=== PATIENT | female | born 1985 | race Caucasian/White ===

== ENCOUNTER 2017-01-06 23:40 | Outpatient (CLI) | payer BC ==
[~2017-01-06] VITALS: Ht 170.2 cm; Wt 85.0 kg
== END 2017-01-07 01:35 | disposition home or self-care (01) ==
LOC: LDOP 23:40
PROVIDERS: ATTEND Obstetrics & Gynecology
DX: O62.9 Abnormality of forces of labor, unspecified (principal); O48.0 Post-term pregnancy; Z3A.40 40 weeks gestation of pregnancy
CPT/HCPCS: 59025; 99201; G0463

== ENCOUNTER 2017-01-08 21:43 | Inpatient (IN) | payer BC ==
[~2017-01-08] VITALS: Ht 167.6 cm; Wt 82.0 kg
[2017-01-08 22:21] VITALS: BP 120/70
[2017-01-08] MEDS ORDERED: OXYTOCIN 30U/ 0.9% NaCL 500ML 500 ML IV ONE (23:20)
[2017-01-08] MEDS ORDERED: LACTATED RINGERS 1,000 ML IV SCH (23:20)
[2017-01-08] MEDS ORDERED: SODIUM CHLORIDE FLUSH 10ML SYR IVF PRN (23:30)
[2017-01-08] MEDS ORDERED: FENTANYL PF 100 MCG/2ML IVPush PRN (23:30)
[2017-01-08] MEDS ORDERED: FENTANYL PF 100 MCG/2ML IV PRN (23:30)
[2017-01-08] MEDS ORDERED: ONDANSETRON 2MG/ML, 2ML IVPush PRN (23:30)
[2017-01-08] MEDS ORDERED: LIDOCAINE 1%, 20ML ONE (23:30)
[2017-01-08] MEDS ORDERED: MISOPROSTOL 200 MCG TABLET ONE (23:31)
[2017-01-08] MEDS ORDERED: NEWBORN KIT ONE (23:32)
[2017-01-08] MEDS ORDERED: OXYTOCIN 30U/ 0.9% NaCL 500ML 500 ML ONE (23:35)
[2017-01-09] MEDS ORDERED: FENTANYL PF 100 MCG/2ML ONE ×2 (03:00→03:28)
[2017-01-09] MEDS ORDERED: BUPIVACAINE/PF 0.25% ONE (03:22)
[2017-01-09] MEDS ORDERED: FENTANYL/BUPIV./NS/PF 250 ML EPIDCONT ONE ×2 (03:22→03:25)
[2017-01-09] MEDS ORDERED: LACTATED RINGERS 1,000 ML IV SCH (03:24)
[2017-01-09] MEDS ORDERED: FENTANYL/BUPIV./NS/PF 250 ML EPIDCONT SCH (03:24)
[2017-01-09] MEDS ORDERED: LACTATED RINGERS 1,000 ML IVBOLUS PRN (03:30)
[2017-01-09] MEDS ORDERED: EPHEDRINE 50 MG/ML, 1ML IVPush PRN (03:30)
[2017-01-09] MEDS ORDERED: NALOXONE 0.4 MG/ML, 1ML IVPush PRN (03:30)
[2017-01-09] MEDS ORDERED: METHYLERGONOVINE 0.2 MG/ML IM ONE (04:28)
[2017-01-09] MEDS: OXYTOCIN 30U/ 0.9% NaCL 500ML 500 ML IV SCH ×4 (04:52→18:54)
[2017-01-09] MEDS ORDERED: ACETAMINOPHEN 325 MG TABLET PO PRN (05:00)
[2017-01-09] MEDS ORDERED: CARBOPROST TROMETHAMINE 250 MCG/ML, 1ML IM PRN (05:00)
[2017-01-09] MEDS ORDERED: ONDANSETRON 2MG/ML, 2ML IV PRN (05:00)
[2017-01-09] MEDS ORDERED: MISOPROSTOL 200 MCG TABLET PO PRN (05:00)
[2017-01-09] MEDS ORDERED: OXYTOCIN 10 UNITS/ML, 1ML IM PRN (05:00)
[2017-01-09] MEDS ORDERED: HYDROcodone/APAP 5/325 TABLET PO PRN (05:00)
[2017-01-09] MEDS ORDERED: METHYLERGONOVINE 0.2 MG/ML IM PRN ×2 (05:00)
[2017-01-09] MEDS ORDERED: MISOPROSTOL 200 MCG TABLET PR PRN (05:00)
[2017-01-09] MEDS ORDERED: HYDROcodone/APAP 5/325 TABLET ONE (07:16)
[2017-01-09] MEDS ORDERED: IBUPROFEN 600 MG TABLET ONE (07:17)
[2017-01-09] MEDS: IBUPROFEN 600 MG TABLET PO PRN ×3 (07:18→22:58)
[2017-01-09 07:30] VITALS: BP 117/68
[2017-01-09] MEDS: PRENATAL VIT/IRON/FA 1 EACH TABLET PO SCH ×2 (09:00)
[2017-01-09] MEDS: SERTRALINE 50MG TABLET PO SCH (09:00)
[2017-01-09] MEDS: THYROID 30 MG TABLET PO SCH (09:00)
[2017-01-09] MEDS: HYDROcodone/APAP 5/325 TABLET PO PRN ×3 (11:43→20:38)
[2017-01-09 12:15] VITALS: BP 107/72
[2017-01-09 17:11] VITALS: BP 121/77
[2017-01-09] MEDS: DOCUSATE 100 MG CAPSULE PO PRN (20:38)
[2017-01-09 20:50] VITALS: BP 109/63
[2017-01-10 00:40] VITALS: BP 96/59
[2017-01-10] MEDS: HYDROcodone/APAP 5/325 TABLET PO PRN ×4 (00:47→13:03)
[2017-01-10] MEDS: OXYTOCIN 30U/ 0.9% NaCL 500ML 500 ML IV SCH ×2 (00:52→04:54)
[2017-01-10] MEDS ORDERED: IBUP-1222 PO (03:22)
[2017-01-10] MEDS ORDERED: DOCU-30 PO (03:23)
[2017-01-10 04:10] VITALS: BP 115/77
[2017-01-10] MEDS: IBUPROFEN 600 MG TABLET PO PRN ×2 (04:51→11:50)
[2017-01-10 08:30] VITALS: BP 106/64
[2017-01-10] MEDS: DOCUSATE 100 MG CAPSULE PO PRN (08:41)
[2017-01-10] MEDS: THYROID 30 MG TABLET PO SCH (09:00)
[2017-01-10] MEDS: PRENATAL VIT/IRON/FA 1 EACH TABLET PO SCH ×2 (09:00)
[2017-01-10] MEDS: SERTRALINE 50MG TABLET PO SCH (09:00)
[2017-01-10] MEDS ORDERED: HYDR-3240 PO (09:47)
== END 2017-01-10 14:33 | disposition home or self-care (01) | DRG 774 ==
LOC: LDOP 21:43 → LDIP 23:25 → 2NW 01-09 07:40
PROVIDERS: ADMIT Obstetrics & Gynecology; ATTEND Obstetrics & Gynecology
PROC: 10E0XZZ Delivery of Products of Conception, External Approach (ICD-10-PCS; principal; 2017-01-09)
PROC: 10907ZC Drainage of Amniotic Fluid, Therapeutic from Products of Conception, Via Natural or Artificial Opening (ICD-10-PCS; 2017-01-09)
PROC: 0HQ9XZZ Repair Perineum Skin, External Approach (ICD-10-PCS; 2017-01-09)
DX: O99.354 Diseases of the nervous system complicating childbirth (principal); O72.1 Other immediate postpartum hemorrhage; O99.344 Other mental disorders complicating childbirth; O99.284 Endocrine, nutritional and metabolic diseases complicating childbirth; O69.81X0 Labor and delivery complicated by cord around neck, without compression, not applicable or unspecified; F32.9 Major depressive disorder, single episode, unspecified; E06.3 Autoimmune thyroiditis; G43.909 Migraine, unspecified, not intractable, without status migrainosus; O70.0 First degree perineal laceration during delivery; Z88.1 Allergy status to other antibiotic agents; Z79.899 Other long term (current) drug therapy; Z3A.40 40 weeks gestation of pregnancy; Z37.0 Single live birth
CPT/HCPCS: 36415; 85025; 86850; 86870; 86900; 86922; 86923; J3010; J2210; J2590; J7120

== ENCOUNTER 2018-03-03 17:27 | Emergency (ER) | payer BC ==
[~2018-03-03] VITALS: Ht 170.2 cm; Wt 165.0 kg
[~2018-03-03 17:27] MED LIST: DOCU-131 PO; HYDR-3240 PO; IBUP-1222 PO
[2018-03-03] MEDS ORDERED: MORPHINE SULFATE 4 MG/ML, 1ML ONE ×2 (18:54→19:44)
[2018-03-03] MEDS ORDERED: ONDANSETRON 2MG/ML, 2ML ONE (18:54)
[2018-03-03] MEDS: MORPHINE SULFATE 4 MG/ML, 1ML IVPush PRN ×2 (18:58→19:45)
[2018-03-03] MEDS ORDERED: ONDANSETRON 2MG/ML, 2ML IVPush ONE (19:00)
[2018-03-03 19:01] LABS: BASOPHILS # (AUTO) 0.03 x10^3/uL (0-0.1); BASOPHILS % (AUTO) 1 % (0-1); EOSINOPHILS # (AUTO) 0.05 x10^3/uL (0-0.4); EOSINOPHILS % (AUTO) 1 % (1-7); LYMPHOCYTES # (AUTO) 2.45 x10^3/uL (1-3.4); LYMPHOCYTES % (AUTO) 35 % (22-44); MD NO; MEAN CORPUSCULAR HEMOGLOBIN 31.9 pg (27.0-34.8); MEAN CORPUSCULAR HGB CONC 33.8 g/dL (32.4-35.8); MEAN CORPUSCULAR VOLUME 94.3 fL (80-100); MEAN PLATELET VOLUME 8.2 fL (7.4-10.4); MICROSCOPIC NOT IND; MONOCYTES # (AUTO) 0.52 x10^3/uL (0.2-0.8); MONOCYTES % (AUTO) 7 % (2-9); NEUTROPHILS # (AUTO) 3.97 x10^3/uL (1.8-6.8); NEUTROPHILS % (AUTO) 57 % (42-75); PLATELET COUNT 250 x10^3/uL (130-400); RED BLOOD COUNT 4.71 x10^6/uL (3.82-5.3); RED CELL DISTRIBUTION WIDTH 12.9 % (9.6-15.2)
[2018-03-03 19:05] LABS: CULTURE INDICATED? NO
[2018-03-03 19:13] LABS: ALANINE AMINOTRANSFERASE 22 U/L (12-78); ALBUMIN 4.1 g/dL (3.4-5.0); ANION GAP 6 mmol/L (5-15); CALCIUM 8.8 mg/dL (8.5-10.1); CHLORIDE 106 mmol/L (98-107); CREATININE 0.67 mg/dL (0.55-1.02)
[2018-03-03 19:15] LABS: INTERNATIONAL NORMALIZED RATIO 0.98 (0.93-1.1); PROTHROMBIN TIME 10.2 Seconds (9.6-11.5)
[2018-03-03 19:18] LABS: ALKALINE PHOSPHATASE 93 U/L (45-117); BILIRUBIN,TOTAL 0.3 mg/dL (0.2-1.0); TOTAL PROTEIN 7.5 g/dL (6.4-8.2)
[2018-03-03] MEDS ORDERED: OMNIPAQUE 350 MG/ML, 100ML BOTTLE ONE (20:07)
[2018-03-03 20:21] VITALS: BP 113/76
[2018-03-03] MEDS ORDERED: KETOROLAC 30 MG/1 ML ONE (20:22)
[2018-03-03] MEDS ORDERED: KETOROLAC 30 MG/1 ML IVPush ONE (20:30)
== END 2018-03-03 21:03 | disposition home or self-care (01) ==
LOC: ED 20:55
DX: S20.211A Contusion of right front wall of thorax, initial encounter (principal); R10.11 Right upper quadrant pain; W18.30XA Fall on same level, unspecified, initial encounter; Y93.89 Activity, other specified; Y92.410 Unspecified street and highway as the place of occurrence of the external cause; Y99.9 Unspecified external cause status
CPT/HCPCS: 36415; 71046; 74177; 80053; 81003; 83690; 84703; 85025; 85610; 85730; 93005; 96374; 96375; 96376; 99285; J1885; J2405; Q9967

== ENCOUNTER → 2020-11-11 | Outpatient (CLI) | payer BC ==
[~2020-11-11] MED LIST changes: +ACET-1600 PO; +AMIT75TA PO; +CIDE500T PO; +DIPH25CA61 PO; +HYDR-1067 PO; -HYDR-3240 PO; +LEVO300T2 PO; +LEVO5TAB29 PO; +MELA10TA PO; +MULT-449 PO; +RIVA20TA PO; +UBRO50TA PO; +VENL37.58 PO; +fioricet PO; +methyl folate PO; +slow fe PO
[2020-11-11 11:25] LABS: BASOPHILS % (AUTO) 1 % (0-1); EOSINOPHILS % (AUTO) 2 % (1-7); LYMPHOCYTES % (AUTO) 41 % (22-44); MEAN CORPUSCULAR HEMOGLOBIN 31.6 pg (27.0-34.8); MEAN PLATELET VOLUME 7.4 fL (7.4-10.4); MONOCYTES % (AUTO) 7 % (2-9); NEUTROPHILS % (AUTO) 49 % (42-75); PLATELET COUNT 259 x10^3/uL (130-400); RED BLOOD COUNT 4.67 x10^6/uL (3.82-5.3); RED CELL DISTRIBUTION WIDTH 12.3 % (9.6-15.2)
[2020-11-11 11:31] LABS: CHLORIDE 106 mmol/L (98-107)
[2020-11-11 11:32] LABS: MD NO
[2020-11-11 11:50] LABS: ALANINE AMINOTRANSFERASE 33 U/L (12-78); ALBUMIN 3.8 g/dL (3.4-5.0); ALKALINE PHOSPHATASE 91 U/L (45-117); ANION GAP 9 mmol/L (5-15); BILIRUBIN,TOTAL 0.2 mg/dL (0.2-1.0); CALCIUM 9.2 mg/dL (8.5-10.1); CREATININE 0.65 mg/dL (0.55-1.02); TOTAL PROTEIN 7.4 g/dL (6.4-8.2)
[2020-11-11 11:56] LABS: MICROSCOPIC AUTO
== END | disposition home or self-care (01) ==
LOC: STAR 09:46
PROVIDERS: ATTEND Obstetrics & Gynecology
DX: Z01.812 Encounter for preprocedural laboratory examination (principal); R10.2 Pelvic and perineal pain; N94.6 Dysmenorrhea, unspecified; N80.9 Endometriosis, unspecified; N92.0 Excessive and frequent menstruation with regular cycle; Z20.822 Contact with and (suspected) exposure to COVID-19
CPT/HCPCS: 36415; 80053; 81001; 84702; 85025; 87086; U0003

== ENCOUNTER 2020-11-17 10:31 | Day surgery (SDC) | payer BC ==
[~2020-11-17] VITALS: Ht 170.2 cm; Wt 94.5 kg
[2020-11-17] MEDS ORDERED: EPINEPHRINE 1 MG/ML, 1ML ONE (10:51)
[2020-11-17] MEDS ORDERED: BUPIVACAINE/PF 0.5% ONE (10:51)
[2020-11-17] MEDS ORDERED: LIDOCAINE-MPF 1%, 2ML INFIL ONE (11:00)
[2020-11-17] MEDS ORDERED: LACTATED RINGERS 1,000 ML IV SCH (11:00)
[2020-11-17] MEDS ORDERED: ACETAMINOPHEN 500 MG TABLET PO ONE (11:00)
[2020-11-17 11:02] LABS: HCG UR SG 1.009 (1.003-1.030)
[2020-11-17 11:06] VITALS: BP 112/77
[2020-11-17] MEDS ORDERED: FENTANYL PF 250 MCG/5ML ONE ×2 (12:33→13:33)
[2020-11-17] MEDS ORDERED: MIDAZOLAM 1 MG/ML, 2ML ONE (12:33)
[2020-11-17] MEDS ORDERED: DEXAMETHASONE 4 MG/ML, 5ML ONE (12:34)
[2020-11-17] MEDS ORDERED: ONDANSETRON 2MG/ML, 2ML ONE (12:36)
[2020-11-17] MEDS ORDERED: CEFAZOLIN 1,000 MG ONE (12:36)
[2020-11-17] MEDS ORDERED: GLYCOPYRROLATE 0.2MG/1ML, 5ML ONE (14:06)
[2020-11-17] MEDS ORDERED: ROCURONIUM 10MG/ML,5ML ONE (14:06)
[2020-11-17] MEDS ORDERED: NEOSTIGMINE 1 MG/ML, 10ML ONE (14:06)
[2020-11-17] MEDS ORDERED: PROPOFOL 10 MG/ML, 20ML ONE (14:06)
[2020-11-17] MEDS ORDERED: FENTANYL PF 100 MCG/2ML ONE ×2 (14:30→14:41)
[2020-11-17] MEDS: FENTANYL PF 100 MCG/2ML IV PRN ×4 (14:31→14:56)
[2020-11-17] MEDS ORDERED: HYDROmorphone 1 MG/ML, 1ML INJ ONE ×2 (14:33→16:06)
[2020-11-17] MEDS: HYDROmorphone 1 MG/ML, 1ML INJ IVPush PRN ×8 (14:40→16:17)
[2020-11-17] MEDS ORDERED: OXYcodone 5 MG/5 ML ORAL.SOL UDC ONE (14:41)
[2020-11-17] MEDS ORDERED: HYDROmorphone 2 MG/ML, 1ML ONE (14:49)
[2020-11-17] MEDS ORDERED: OXYcodone 5 MG/5 ML ORAL.SOL UDC PO PRN (15:00)
[2020-11-17] MEDS ORDERED: MEPERIDINE/PF 25MG/0.5ML IVPush PRN (15:00)
[2020-11-17] MEDS ORDERED: PROMETHAZINE 12.5 MG SUPP PR PRN (15:00)
[2020-11-17] MEDS ORDERED: EPHEDRINE 50 MG/ML, 1ML IVPush PRN (15:00)
[2020-11-17] MEDS ORDERED: ALBUTEROL SULFATE 2.5 MG/3 ML NPPB PRN (15:00)
[2020-11-17] MEDS ORDERED: hydrALAzine 20 MG/ML, 1ML IV PRN (15:00)
[2020-11-17] MEDS ORDERED: MIDAZOLAM 1 MG/ML, 2ML IV PRN (15:00)
[2020-11-17] MEDS ORDERED: DIAZEPAM 5 MG/ML, 2ML IVPush PRN (15:00)
[2020-11-17] MEDS ORDERED: DIPHENHYDRAMINE 50 MG/ML, 1ML IVPush PRN ×2 (15:00)
[2020-11-17] MEDS ORDERED: ONDANSETRON 2MG/ML, 2ML IVPush PRN (15:00)
[2020-11-17] MEDS ORDERED: LABETALOL 5MG/ML, 20ML IV PRN (15:00)
[2020-11-17] MEDS ORDERED: PROMETHAZINE 25 MG/ML, 1ML IVPush PRN (15:00)
[2020-11-17] MEDS ORDERED: KETOROLAC 30 MG/1 ML IVPush ONE (18:00)
[2020-11-17] MEDS ORDERED: KETOROLAC 30 MG/1 ML ONE (18:00)
== END 2020-11-17 19:05 | disposition home or self-care (01) ==
LOC: OUT 10:31
PROVIDERS: ATTEND Obstetrics & Gynecology
DX: N92.1 Excessive and frequent menstruation with irregular cycle (principal); N94.6 Dysmenorrhea, unspecified; G43.909 Migraine, unspecified, not intractable, without status migrainosus; F41.9 Anxiety disorder, unspecified; D64.9 Anemia, unspecified; Z79.01 Long term (current) use of anticoagulants; Z79.890 Hormone replacement therapy; Z79.891 Long term (current) use of opiate analgesic; Z79.899 Other long term (current) drug therapy; Z86.718 Personal history of other venous thrombosis and embolism; Z88.8 Allergy status to other drugs, medicaments and biological substances; Z98.890 Other specified postprocedural states; Z82.49 Family history of ischemic heart disease and other diseases of the circulatory system
CPT/HCPCS: 36415; 58552; 81025; 86850; 86870; 86880; 86900; 86922; 88307; J0171; J0690; J1100; J1170; J1885; J2250; J2405; J2704; J2710; J3010; J7120; 86923